=== PATIENT | male | born 2000 | race Caucasian/White ===

== ENCOUNTER 2019-02-25 06:49 | Emergency (ER) | payer OTHER ==
[~2019-02-25] VITALS: Ht 172.7 cm; Wt 99.8 kg
[~2019-02-25 06:49] MED LIST: CHLORASEPTIC20 ML MM; CODEINE-GUAIFE473 M1 PO; IBUPROFEN 200200 M1 PO; IBUPROFEN 800800 M1 PO; KEFLEX500 MG PO; NOHOMEMEDICATIONS; PENICILLIN VK500 MG PO; TAMIFLU75 MG PO; TRAMADOL 50 MG50 MG PO
[2019-02-25] MEDS ORDERED: PREDNISONE 10 M10 M1 PO (07:12)
[2019-02-25] MEDS ORDERED: DIPHENHIST50 MG PO (07:12)
[2019-02-25 07:15] VITALS: BP 154/104
== END 2019-02-25 07:15 | disposition home or self-care (01) ==
LOC: M.ERS 06:49
DX: L25.9 Unspecified contact dermatitis, unspecified cause (principal)